=== PATIENT | male | born 1960 | race Hispanic/Latino ===

== ENCOUNTER 2024-01-01 06:52 | Day surgery (SDC) | payer OTHER ==
[2023-12-30 15:51] LABS: BASOPHILS # (AUTO) 0.06 K/uL (0.00-0.20); EOSINOPHILS # (AUTO) 0.09 K/uL (0.00-0.70); EOSINOPHILS % (AUTO) 1.5 % (0.0-8.0); HEMATOCRIT 42.2 % (42-54); IMMATURE GRANULOCYTE ABSOLUTE 0.02 K/uL (0-1); LYMPHOCYTES # (AUTO) 2.1 K/uL (1.0-4.8); LYMPHOCYTES % (AUTO) 34.6 % (21.0-51.0); MEAN CORPUSCULAR HEMOGLOBIN 31.6 pg (27.0-33.0); MEAN CORPUSCULAR HGB CONC 34.1 g/dL (32.0-36.0); MEAN CORPUSCULAR VOLUME 92.7 fL (79-99); MONOCYTES # (AUTO) 0.3 K/uL (0.1-1.0); MONOCYTES % (AUTO) 4.8 % (3.0-13.0); NEUTROPHILS # (AUTO) 3.6 K/uL (1.8-7.7); NEUTROPHILS % (AUTO) 57.8 % (40.0-77.0); PLATELET COUNT (AUTO) 337 K/uL (130-400); RED BLOOD CELL COUNT(AUTO) 4.55 MIL/uL (4.50-6.20); RED CELL DISTRIBUTION WIDTH 12.3 % (11.0-15.5); WHITE BLOOD COUNT (AUTO) 6.2 K/uL (4.8-10.8)
[2023-12-30 16:40] VITALS: BP 141/75; PULSE 63; RESP 16
[~2024-01-01] VITALS: Ht 165.1 cm; Wt 87.0 kg
[2024-01-01] VITALS (17 sets, daily range): BP systolic 98–138; BP diastolic 50–85; PULSE 56–82; RESP 12–18
[~2024-01-01 06:52] MED LIST: ACET325T51 PO; ATOR10 PO; CYAN100099 PO; IBUP-2070 PO; LIDOCAINE PATCH 5% TD; VITA1CAP85 PO
[2024-01-01] MEDS ORDERED: LACTATED RINGERS 1000ML 1,000 ML IV ONE (06:56)
[2024-01-01] MEDS ORDERED: CEFAZOLIN SODIUM 2 GM VIAL ONE (06:56)
[2024-01-01] MEDS ORDERED: GLYCOPYRROLATE 0.2 MG/ML 5 ML VIAL ONE (07:12)
[2024-01-01] MEDS ORDERED: DEXAMETHASONE SOD PHOSPHATE 10MG/ML 1ML VIAL ONE (07:12)
[2024-01-01] MEDS ORDERED: NEOSTIGMINE METHYLSULFATE 1MG/ML IV ONE (07:12)
[2024-01-01] MEDS ORDERED: PROPOFOL 10 MG/ML 20ML VIAL IV ONE ×2 (07:12→09:01)
[2024-01-01] MEDS ORDERED: MIDAZOLAM HCL 1 MG/ML 2ML VIAL ONE (07:12)
[2024-01-01] MEDS ORDERED: ONDANSETRON 4MG INJ ONE (07:12)
[2024-01-01] MEDS ORDERED: SUCCINYLCHOLINE CHLORIDE 20 MG/ML 10 ML VIAL ONE (07:12)
[2024-01-01] MEDS ORDERED: LIDOCAINE PF 100MG/5ML (2%) SYRINGE 5ML ONE (07:12)
[2024-01-01] MEDS ORDERED: ROCURONIUM BROMIDE 10MG/1ML 5ML VL ONE (07:13)
[2024-01-01] MEDS ORDERED: FENTANYL CITRATE PF 50 MCG/1 ML 2ML VIAL ONE ×2 (07:13→07:54)
[2024-01-01] MEDS ORDERED: BUPIVACAINE/PF 0.5% 30ML VIAL ONE (07:35)
[2024-01-01] MEDS: CEFAZOLIN SODIUM 2 GM VIAL IVPB ONE (07:42)
[2024-01-01] MEDS: BUPIVACAINE/PF 0.5% 30ML VIAL INJ ONE (07:43)
[2024-01-01] MEDS ORDERED: BUPIVACAINE/PF 0.5% 10ML VIAL ONE (08:56)
== END 2024-01-01 10:51 | disposition home or self-care (01) ==
LOC: DAH 06:52
PROVIDERS: ATTEND Surgery
DX: D17.1 Benign lipomatous neoplasm of skin and subcutaneous tissue of trunk (principal); D17.24 Benign lipomatous neoplasm of skin and subcutaneous tissue of left leg; L72.0 Epidermal cyst; E78.5 Hyperlipidemia, unspecified; Z79.899 Other long term (current) drug therapy; Z98.890 Other specified postprocedural states
CPT/HCPCS: 85025; 36415; 27337; 11403; 21930; 88304; 88305; A6260; A4663; J7030; A4452; J7120; J3010 ×2; J1100; J0330; J0665 ×3; J3490 ×2; J2001; J2250; J2704 ×2; J2405; J2710; J0690 ×2; A4930 ×2; A4215; A4223; A4213; A4222; A4221; A4600